=== PATIENT | male | born 2000 ===

== ENCOUNTER 2022-03-19 18:54 | Emergency (ER) | payer SELFPAY ==
[~2022-03-19] VITALS: Ht 172.7 cm; Wt 73.6 kg
[2022-03-19 19:00] VITALS: BP 108/71; PULSE 83; TEMP 97.2
[2022-03-19] MEDS ORDERED: CEPHALEXIN500 M1 PO (20:40)
== END 2022-03-19 20:58 | disposition home or self-care (01) ==
LOC: COL.ER 18:54
DX: S61.210A Laceration without foreign body of right index finger without damage to nail, initial encounter (principal); F17.200 Nicotine dependence, unspecified, uncomplicated; Z23 Encounter for immunization; Z28.311 Partially vaccinated for COVID-19; W26.8XXA Contact with other sharp object(s), not elsewhere classified, initial encounter; Y92.59 Other trade areas as the place of occurrence of the external cause; Y99.0 Civilian activity done for income or pay